=== PATIENT | female | born 1995 | race African-American/Black ===

== ENCOUNTER 2016-12-06 05:47 | Emergency (ER) | payer OTHER ==
--- NOTE | 2016-12-06 08:30 | EDDOCDS ---
Physician Documentation [facility] Name: Bahrat Sloan Age: 21 yrs Sex: Female : 1995 Arrival Date: 12/06/2016 Time: 05:47 Bed I4 / M4 Private MD: Disposition: 12/06/16 08:14 Discharged to Home/Self Care. Impression: Acute upper respiratory infections of multiple and unspecified sites, Nasal congestion. - Condition is Stable. - Discharge Instructions: Upper Respiratory Infection, Adult. - Prescriptions for dextromethorphan- guaifenesin 30-200 mg/5 mL Oral liquid - take 5 milliliter by ORAL route every 6 hours As needed as needed; 150 milliliter. Saline Nasal 0.65 % - spray 1 spray by INTRANASAL route as directed 1 spray in each nostril before all feeding and sleep times; 1 bottle. - Medication Reconciliation form. - Follow up: [facility] [place]; When: Call to arrange an appointment; Reason: Wound/Symptom Recheck, Recheck today's complaints, Continuance of care. - Problem is new. - Symptoms are unchanged. Historical: - Allergies: No known drug Allergies; - Home Meds: 1. Vitamin Oral tab - PMHx: Anxiety; Depression; - PSHx: left knee surgery; - Social history: Smoking status: Patient states was never smoker of tobacco. No barriers to communication noted, The patient speaks fluent Greenlandic, Speaks appropriately for age. - Family history: Not pertinent. - : The pt / caregiver states he / she is not on anticoagulants. Home medication list is obtained from the patient. - Exposure Risk Screening:: None identified. 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 (160.02 cm); Pain 1/10; 08:20 BP 96 / 59; Pulse 89; Resp 18; Temp 97.8; Pulse Ox 98% ; Pain 0/10; jam1 05:57 Body Mass Index 30.11 (77.11 kg, 160.02 cm) ko2 MDM: 06:07 [facility] Payment Agreement was scanned into [employer] and attached to record. hs2 07:47 Heart Tones ordered. cc10 07:59 Strep Screen, Nursing ordered. cc10 08:14 GATS (NEGATIVE STREP SCREEN) Ordered. EDMS 08:23 Financial registration complete. jp5 Signatures: Dispatcher [employer] EDMS Brittany Carroll, RN RN Sanjeev Mills, KELLY PAObi cc10 Kathrine Villela,RN RN Jean Rapp jp5 Ema Burden, Reg Reg hs2 The chart was reviewed and I authenticate all verbal orders and agree with the evaluation and treatment provided.Attachments: 06:07 [facility] Payment Agreement hs2 MTDD
--- NOTE | 2016-12-06 08:30 | EDDOCDS ---
Nurse's Notes [facility] Name: Bharat Sloan Age: 21 yrs Sex: Female : 1995 Arrival Date: 12/06/2016 Time: 05:47 Bed I4 / M4 Private MD: Diagnosis: Acute upper respiratory infections of multiple and unspecified sites;Nasal congestion Presentation: 12/06 05:54 Presenting complaint: Patient states: cold since yesterday. Pt states throat is itchy ko2 and woke up with a headache. Pt states she is 21 weeks and was told by the guys on drum she needed to come and be seen. Suicide/Homicide risk assessment- the patient denies having any suicidal and/or homicidal ideations and does not present with any other emotional, behavioral or mental health complaints. 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 Transition of care: patient was not received from another setting of care. 05:54 Method Of Arrival: Walkin/Carried/Asstd ko2 06:00 Adult Sepsis Screening: The patient does not have new or worsening altered mentation. ko2 Patient's respiratory rate is less than 22. Systolic blood pressure is greater than 100. Patient has a qSOFA score of 0- Negative Sepsis Screen. 06:00 Acuity: JOE Level 4 ko2 Triage Assessment: 05:56 General: Appears in no apparent distress. Pain: Denies pain. Pt Declines HIV testing. ko2 Neurological: Level of Consciousness is awake, alert. Respiratory: Airway is patent Respiratory effort is even, Respiratory pattern is regular. Derm: Skin is normal. 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 Vitamin Oral tab - PMHx: Anxiety; Depression; - PSHx: left knee surgery; - Social history: Smoking status: Patient states was never smoker of tobacco. No barriers to communication noted, The patient speaks fluent Nepali, Speaks appropriately for age. - Family history: Not pertinent. - : The pt / caregiver states he / she is not on anticoagulants. Home medication list is obtained from the patient. - Exposure Risk Screening:: None identified. Screenin:53 Screening information is obtained from the patient. Primary language is Nepali. Fall jam1 risk: No risks identified. Assistance ADL's: requires no assistance with activities of daily living. Abuse/DV Screen: The patient / caregiver reports he/she is: not in a situation that causes fear, pain or injury. Nutritional screening: No deficits noted. Exposure Risk Screening: None identified. Advance Directives: Currently, there is no health care proxy. There is no active DNR order. There is no living will. There is no Power of Automation Test Developer. Advance directive information has not previously been placed in an [facility] medical record. Further advance directive information is declined. home support is adequate. Assessment: 07:50 General: Appears in no apparent distress, comfortable, well nourished, well groomed, kpj Behavior is appropriate for age, pleasant. Pain: Location: throat Pain currently is 5 out of 10 on a pain scale. Neurological: Level of Consciousness is awake, alert, Oriented to person, place, time. EENT: Throat is reddened bilaterally Cervical nodes enlarged on left Reports nasal congestion pain when swallowing Pain is 5 out of 10 on a pain scale. Respiratory: Airway is patent Respiratory effort is even, unlabored, Respiratory pattern is regular, symmetrical, Breath sounds are clear bilaterally. GI: Abdomen is gravid Bowel sounds present X 4 quads. Abd is soft and non tender X 4 quads. : Denies cramping vaginal bleeding. Derm: Skin is pink, warm & dry. 08:23 Reassessment: Patient appears in no apparent distress at this time. Patient states kpj feeling better. Pain: Location: throat Pain currently is 5 out of 10 on a pain scale. EENT: Throat is reddened bilaterally no drooling, accommodates own secretions.. Respiratory: Airway is patent Respiratory effort is even, unlabored, Respiratory pattern is regular, symmetrical. Derm: Skin is pink, warm & dry. Vital Signs: 05:57 BP 118 / 62; Pulse 86; Resp 18; Temp 97.9(TE); Pulse Ox 97% on R/A; Weight 77.11 kg; ko2 Height 63 in. (160.02 cm); Pain 1/10; 08:20 BP 96 / 59; Pulse 89; Resp 18; Temp 97.8; Pulse Ox 98% ; Pain 0/10; jam1 05:57 Body Mass Index 30.11 (77.11 kg, 160.02 cm) ko2 Vitals: 05:57 Log In Time: December 06, 2016 at 05:47. ko2 07:54 Heart Tones 138BPM. [facility] ED Course: 05:48 Patient visited by Henrry Bowen Reg. pm4 05:48 Patient moved to Waiting pm4 05:53 Patient moved to Triage 1 ko2 06:00 Triage Initiated ko2 06:00 Patient moved to Waiting ko2 06:07 [facility] Payment Agreement was scanned into [employer] and attached to record. hs2 06:47 Patient moved to I4 / M4 jam1 06:53 Pt greeted and oriented to ED. Patient advised of names of staff involved in care, jam1 location of call church, wait times and NPO status. Patient has correct armband on for positive identification. Bed in low position. Call light in reach. Side rails up X 1. Adult w/ patient. Door closed. 07:44 Sanjeev Vickers PA-C is PHCP. cc10 07:44 Henri Solares MD is Attending Physician. cc10 07:50 Resting quietly. kpj 07:50 The patient / caregiver is instructed regarding the plan of care and ED course. kpj 07:50 No IV's were initiated during this patient's visit. No procedures done that require [facility] assistance. 07:58 Patient visited by Sanjeev Vickers PA-C. cc10 07:58 Patient visited by Sanjeev Vickers PA-C. cc10 08:14 [facility] cc10 08:17 GATS (NEGATIVE STREP SCREEN) Sent. [facility] Order Results: There are currently no results for this order. Outcome: 08:14 Discharge ordered by Provider. cc10 08:23 Discharge Assessment: Patient awake, alert and oriented x 3. No cognitive and/or kpj functional deficits noted. Patient verbalized understanding of disposition instructions. patient administered narcotics - no. The following High Risk Discharge criteria are identified: None. Discharged to home ambulatory, with significant other. Condition: good. Discharge instructions given to patient, Instructed on discharge instructions, follow up and referral plans. medication usage, Demonstrated understanding of instructions, medications, Pt was receptive of discharge instructions/ teaching. Prescriptions given X 2. No special radiology studies were completed. Property sent home with patient. 08:29 Patient left the ED. [facility] Signatures: Brittany Carroll RN RN j Huong Romero, HEALTH INFORMATION ASSISTANT HEALTH INFORMATION ASSISTANT jam1 Sanjeev Vickers, PA-C PA-C cc10 Kathrine Villela,RN RN ko2 Ema Burden, Reg Reg hs2 Henrry Bowen, Reg Reg pm4 MTDD
--- NOTE | 2016-12-08 09:30 | EDDOCDS ---
Physician Documentation [facility] Name: Bharat Sloan Age: 21 yrs Sex: Female : 1995 Arrival Date: 12/06/2016 Time: 05:47 Bed I4 / M4 Private MD: Disposition: 12/06/16 08:14 Discharged to Home/Self Care. Impression: Acute upper respiratory infections of multiple and unspecified sites, Nasal congestion. - Condition is Stable. - Discharge Instructions: Upper Respiratory Infection, Adult. - Prescriptions for dextromethorphan- guaifenesin 30-200 mg/5 mL Oral liquid - take 5 milliliter by ORAL route every 6 hours As needed as needed; 150 milliliter. Saline Nasal 0.65 % - spray 1 spray by INTRANASAL route as directed 1 spray in each nostril before all feeding and sleep times; 1 bottle. - Medication Reconciliation form. - Follow up: [facility] [place]; When: Call to arrange an appointment; Reason: Wound/Symptom Recheck, Recheck today's complaints, Continuance of care. - Problem is new. - Symptoms are unchanged. Historical: - Allergies: No known drug Allergies; - Home Meds: 1. Vitamin Oral tab - PMHx: Anxiety; Depression; - PSHx: left knee surgery; - Social history: Smoking status: Patient states was never smoker of tobacco. No barriers to communication noted, The patient speaks fluent Greek, Speaks appropriately for age. - Family history: Not pertinent. - : The pt / caregiver states he / she is not on anticoagulants. Home medication list is obtained from the patient. - Exposure Risk Screening:: None identified. 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 (160.02 cm); Pain 1/10; 08:20 BP 96 / 59; Pulse 89; Resp 18; Temp 97.8; Pulse Ox 98% ; Pain 0/10; jam1 05:57 Body Mass Index 30.11 (77.11 kg, 160.02 cm) ko2 MDM: 06:07 [facility] Payment Agreement was scanned into [employer] and attached to record. hs2 07:47 Heart Tones ordered. cc10 07:59 Strep Screen, Nursing ordered. cc10 08:14 GATS (NEGATIVE STREP SCREEN) Ordered. EDMS 08:23 Financial registration complete. jp5 12/07 11:02 T-Sheet-- Draft Copy was scanned into [employer] and attached to record. gb Signatures: Dispatcher [employer] EDMS Brittany Carroll, RN RN Gaby Tripathi, Reg Reg gb Sanjeev Vickers, PA-C PA-C cc10 Kathrine Villela,RN RN Jean Rapp jp5 Ema Burden, Reg Reg hs2 The chart was reviewed and I authenticate all verbal orders and agree with the evaluation and treatment provided.Attachments: 12/06 06:07 [facility] Payment Agreement hs2 12/07 11:02 T-Sheet-- Draft Copy gb Chart Complete MTDD
--- NOTE | 2016-12-08 09:30 | EDDOCDS ---
Nurse's Notes [facility] Name: Bharat Sloan Age: 21 yrs Sex: Female : 1995 Arrival Date: 12/06/2016 Time: 05:47 Bed I4 / M4 Private MD: Diagnosis: Acute upper respiratory infections of multiple and unspecified sites;Nasal congestion Presentation: 12/06 05:54 Presenting complaint: Patient states: cold since yesterday. Pt states throat is itchy ko2 and woke up with a headache. Pt states she is 21 weeks and was told by the guys on drum she needed to come and be seen. Suicide/Homicide risk assessment- the patient denies having any suicidal and/or homicidal ideations and does not present with any other emotional, behavioral or mental health complaints. 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 Transition of care: patient was not received from another setting of care. 05:54 Method Of Arrival: Walkin/Carried/Asstd ko2 06:00 Adult Sepsis Screening: The patient does not have new or worsening altered mentation. ko2 Patient's respiratory rate is less than 22. Systolic blood pressure is greater than 100. Patient has a qSOFA score of 0- Negative Sepsis Screen. 06:00 Acuity: JOE Level 4 ko2 Triage Assessment: 05:56 General: Appears in no apparent distress. Pain: Denies pain. Pt Declines HIV testing. ko2 Neurological: Level of Consciousness is awake, alert. Respiratory: Airway is patent Respiratory effort is even, Respiratory pattern is regular. Derm: Skin is normal. 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 Vitamin Oral tab - PMHx: Anxiety; Depression; - PSHx: left knee surgery; - Social history: Smoking status: Patient states was never smoker of tobacco. No barriers to communication noted, The patient speaks fluent German, Speaks appropriately for age. - Family history: Not pertinent. - : The pt / caregiver states he / she is not on anticoagulants. Home medication list is obtained from the patient. - Exposure Risk Screening:: None identified. Screenin:53 Screening information is obtained from the patient. Primary language is German. Fall jam1 risk: No risks identified. Assistance ADL's: requires no assistance with activities of daily living. Abuse/DV Screen: The patient / caregiver reports he/she is: not in a situation that causes fear, pain or injury. Nutritional screening: No deficits noted. Exposure Risk Screening: None identified. Advance Directives: Currently, there is no health care proxy. There is no active DNR order. There is no living will. There is no Power of Flight Surgeon. Advance directive information has not previously been placed in an [facility] medical record. Further advance directive information is declined. home support is adequate. Assessment: 07:50 General: Appears in no apparent distress, comfortable, well nourished, well groomed, kpj Behavior is appropriate for age, pleasant. Pain: Location: throat Pain currently is 5 out of 10 on a pain scale. Neurological: Level of Consciousness is awake, alert, Oriented to person, place, time. EENT: Throat is reddened bilaterally Cervical nodes enlarged on left Reports nasal congestion pain when swallowing Pain is 5 out of 10 on a pain scale. Respiratory: Airway is patent Respiratory effort is even, unlabored, Respiratory pattern is regular, symmetrical, Breath sounds are clear bilaterally. GI: Abdomen is gravid Bowel sounds present X 4 quads. Abd is soft and non tender X 4 quads. : Denies cramping vaginal bleeding. Derm: Skin is pink, warm & dry. 08:23 Reassessment: Patient appears in no apparent distress at this time. Patient states kpj feeling better. Pain: Location: throat Pain currently is 5 out of 10 on a pain scale. EENT: Throat is reddened bilaterally no drooling, accommodates own secretions.. Respiratory: Airway is patent Respiratory effort is even, unlabored, Respiratory pattern is regular, symmetrical. Derm: Skin is pink, warm & dry. Vital Signs: 05:57 BP 118 / 62; Pulse 86; Resp 18; Temp 97.9(TE); Pulse Ox 97% on R/A; Weight 77.11 kg; ko2 Height 63 in. (160.02 cm); Pain 1/10; 08:20 BP 96 / 59; Pulse 89; Resp 18; Temp 97.8; Pulse Ox 98% ; Pain 0/10; jam1 05:57 Body Mass Index 30.11 (77.11 kg, 160.02 cm) ko2 Vitals: 05:57 Log In Time: December 06, 2016 at 05:47. ko2 07:54 Heart Tones 138BPM. [facility] ED Course: 05:48 Patient visited by Henrry Bowen Reg. pm4 05:48 Patient moved to Waiting pm4 05:53 Patient moved to Triage 1 ko2 06:00 Triage Initiated ko2 06:00 Patient moved to Waiting ko2 06:07 [facility] Payment Agreement was scanned into [employer] and attached to record. hs2 06:47 Patient moved to I4 / M4 jam1 06:53 Pt greeted and oriented to ED. Patient advised of names of staff involved in care, jam1 location of call church, wait times and NPO status. Patient has correct armband on for positive identification. Bed in low position. Call light in reach. Side rails up X 1. Adult w/ patient. Door closed. 07:44 Sanjeev Vickers PA-C is PHCP. cc10 07:44 Henri Solares MD is Attending Physician. cc10 07:50 Resting quietly. kpj 07:50 The patient / caregiver is instructed regarding the plan of care and ED course. kpj 07:50 No IV's were initiated during this patient's visit. No procedures done that require [facility] assistance. 07:58 Patient visited by Sanjeev Vickers PA-C. cc10 07:58 Patient visited by Sanjeev Vickers PA-C. cc10 08:14 [facility] is Referral Physician. cc10 08:17 GATS (NEGATIVE STREP SCREEN) Sent. [facility] 12/07 11:02 T-Sheet-- Draft Copy was scanned into [employer] and attached to record. gb Order Results: Lab Order: GATS (NEGATIVE STREP SCREEN); SPEC'M 12/06/16 08:10 Test: GATS CULTURE (NEG STREP SCR); Value: GATS RESULT NEGATIVE FOR STREP PYOGENES (GROUP A); Status: F Test: GATS CULTURE (NEG STREP SCR); Value: <EXTERNAL COMMENT eCWMed> FULL REPORT IN LAB NOTES (eCW and Medent).; Status: F Outcome: 12/06 08:14 Discharge ordered by Provider. cc10 08:23 Discharge Assessment: Patient awake, alert and oriented x 3. No cognitive and/or [facility] functional deficits noted. Patient verbalized understanding of disposition instructions. patient administered narcotics - no. The following High Risk Discharge criteria are identified: None. Discharged to home ambulatory, with significant other. Condition: good. Discharge instructions given to patient, Instructed on discharge instructions, follow up and referral plans. medication usage, Demonstrated understanding of instructions, medications, Pt was receptive of discharge instructions/ teaching. Prescriptions given X 2. No special radiology studies were completed. Property sent home with patient. 08:29 Patient left the ED. [facility] Signatures: Brittany Carroll, RN RN Huong Mack, COGNOS ADMINISTRATOR COGNOS ADMINISTRATOR jam1 Gaby Diaz, Reg Reg gb Sanjeev Vickers, PA-C PA-C cc10 Kathrine Villela,RN RN ko2 Ema Burden, Reg Reg hs2 Henrry Bowen, Reg Reg pm4 Chart Complete MTDD
--- NOTE | 2016-12-08 09:30 | EDDOCDS ---
Physician Documentation [facility] Name: Bharat Sloan Age: 21 yrs Sex: Female : 1995 Arrival Date: 12/06/2016 Time: 05:47 Bed I4 / M4 Private MD: Disposition: 12/06/16 08:14 Discharged to Home/Self Care. Impression: Acute upper respiratory infections of multiple and unspecified sites, Nasal congestion. - Condition is Stable. - Discharge Instructions: Upper Respiratory Infection, Adult. - Prescriptions for dextromethorphan- guaifenesin 30-200 mg/5 mL Oral liquid - take 5 milliliter by ORAL route every 6 hours As needed as needed; 150 milliliter. Saline Nasal 0.65 % - spray 1 spray by INTRANASAL route as directed 1 spray in each nostril before all feeding and sleep times; 1 bottle. - Medication Reconciliation form. - Follow up: [facility] [place]; When: Call to arrange an appointment; Reason: Wound/Symptom Recheck, Recheck today's complaints, Continuance of care. - Problem is new. - Symptoms are unchanged. Historical: - Allergies: No known drug Allergies; - Home Meds: 1. Vitamin Oral tab - PMHx: Anxiety; Depression; - PSHx: left knee surgery; - Social history: Smoking status: Patient states was never smoker of tobacco. No barriers to communication noted, The patient speaks fluent Icelandic, Speaks appropriately for age. - Family history: Not pertinent. - : The pt / caregiver states he / she is not on anticoagulants. Home medication list is obtained from the patient. - Exposure Risk Screening:: None identified. 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 (160.02 cm); Pain 1/10; 08:20 BP 96 / 59; Pulse 89; Resp 18; Temp 97.8; Pulse Ox 98% ; Pain 0/10; jam1 05:57 Body Mass Index 30.11 (77.11 kg, 160.02 cm) ko2 MDM: 06:07 [facility] Payment Agreement was scanned into [employer] and attached to record. hs2 07:47 Heart Tones ordered. cc10 07:59 Strep Screen, Nursing ordered. cc10 08:14 GATS (NEGATIVE STREP SCREEN) Ordered. EDMS 08:23 Financial registration complete. jp5 12/07 11:02 T-Sheet-- Draft Copy was scanned into [employer] and attached to record. gb Signatures: Dispatcher [employer] EDMS Brittany Carroll, RN RN Gaby Tripathi, Reg Reg gb Sanjeev Vickers, PA-C PA-C cc10 Kathrine Villela,RN RN Jean Rapp jp5 Ema Burden, Reg Reg hs2 The chart was reviewed and I authenticate all verbal orders and agree with the evaluation and treatment provided.Attachments: 12/06 06:07 [facility] Payment Agreement hs2 12/07 11:02 T-Sheet-- Draft Copy gb Chart Complete MTDD
== END 2016-12-06 08:29 | disposition home or self-care (01) ==
LOC: M ED 05:47
DX: O99.512 Diseases of the respiratory system complicating pregnancy, second trimester (principal); J06.9 Acute upper respiratory infection, unspecified; Z3A.21 21 weeks gestation of pregnancy; O99.342 Other mental disorders complicating pregnancy, second trimester; F32.9 Major depressive disorder, single episode, unspecified; F41.9 Anxiety disorder, unspecified

== ENCOUNTER 2017-04-11 19:13 | Outpatient (CLI) | payer OTHER | END 2017-04-11 21:10 | disposition home or self-care (01) | LOC: M LDO 19:13 | PROVIDERS: ATTEND Obstetrics & Gynecology | DX: O26.893 Other specified pregnancy related conditions, third trimester (principal); Z3A.39 39 weeks gestation of pregnancy ==

== ENCOUNTER 2017-04-14 02:22 | Outpatient (CLI) | payer OTHER ==
[~2017-04-14] VITALS: Ht 160 cm; Wt 85.0 kg
[2017-04-14 02:31] VITALS: BP 105/61
[2017-04-14] MEDS ORDERED: PRENTAB55 PO (02:41)
[2017-04-14 04:18] VITALS: BP 107/63
[2017-04-14 06:50] VITALS: BP 105/55
--- NOTE | 2017-04-14 15:59 | HPE ---
DATE OF ADMISSION: 04/14/2017 HISTORY OF PRESENT ILLNESS: A 21-year-old 1, para 0, last menstrual period (LMP) 07/12/2016, estimated date of confinement (EDC) 04/18/2017, at 39 and 3 weeks of gestation, came in with [place] Crain contractions that are 2-6 minutes apart, moderate, not regular. On admission she was 1 cm posterior thick -3. No vaginal loss or bleeding. LABORATORY DATA: Labs show O positive, HIV negative, hepatitis negative, RPR negative, rubella immune. Varicella immune. Pap normal. Urine negative. Gonorrhea and chlamydia negative. 1-hour glucose was 65. 28-week glucose was 89. GBS positive. Quad screen was negative. CF was negative. 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 She is on Valtrex on an as needed basis. PHYSICAL EXAMINATION: She appears distressed and she is having her contractions, but otherwise she is essentially normal. She has been here four hours. In reevaluation category one strip, 1 cm posterior high -3. No vaginal bleeding or loss. Her urine is 10/10, pH seven negative. Blood pressure 105/55, respirations 18, pulse 68, temperature 97.5. She is otherwise normocephalic, atraumatic. Neck full range of motion. Pupils equal and reactive to light. Distal pulses are symmetric. No evidence of deep venous thrombosis (DVT), pulmonary embolism (PE) or superficial phlebitis. Lungs are clear bilaterally to bases. No wheezes or rhonchi. Abdomen is soft. Four quadrant bowel sounds. Appropriate symphysis fundus height. No rashes, lesions or pruritus. No arthralgia, myalgia. No complaints of cough, wheezes, shortness of breath or dyspnea on exertion. No chest pain, not bleeding. Neuro complete. No incontinence, urgency or frequency. No nausea, vomiting, diarrhea or constipation. She has no diabetic issues. Family history and surgical history are noncontributory. She does not smoke or drink, or abuse drugs. No domestic violence. 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 ASSESSMENT: In summary we have a primigravida at 39 and three with [place] Crain contractions, possibly early labor. She is discharged undelivered with precautions. Has a followup on Monday, but feel free to come back in any time should she have ruptured membranes, bleeding, contractions 5-7 which are moderate intensity, or if she requires reevaluation based on her perception of labor. The patient was discharged undelivered.
[2017-04-14] MEDS ORDERED: ZANTTAB PO (16:51)
== END 2017-04-14 08:15 | disposition home or self-care (01) ==
LOC: M LDO 02:22
PROVIDERS: ATTEND Obstetrics & Gynecology
DX: O62.0 Primary inadequate contractions (principal); O98.513 Other viral diseases complicating pregnancy, third trimester; O99.820 Streptococcus B carrier state complicating pregnancy; B00.9 Herpesviral infection, unspecified; Z79.899 Other long term (current) drug therapy; R63.4 Abnormal weight loss; Z3A.39 39 weeks gestation of pregnancy

== ENCOUNTER 2017-04-14 16:29 | Inpatient (IN) | payer OTHER ==
[~2017-04-14] VITALS: Ht 160 cm; Wt 85.0 kg
[2017-04-14] VITALS (29 sets, daily range): BP systolic 90–137; BP diastolic 52–102
[~2017-04-14 16:29] MED LIST: PRENTAB55 PO
[2017-04-14] MEDS ORDERED: ZANTTAB PO (16:51)
[2017-04-14] MEDS ORDERED: LR 1,000 ML IV SCH (17:05)
[2017-04-14] MEDS ORDERED: PENICILLIN G POTASSIUM IV 5 MU in D5W MINI-BAG PLUS 100 ML IV STA (17:05)
[2017-04-14] MEDS ORDERED: LACTATED RINGER'S 1000 ML IV ONE (17:15)
[2017-04-14 17:17] LABS: MEAN CORPUSCULAR HEMOGLOBIN 26.4 pg (27.0-33.0); MEAN CORPUSCULAR HGB CONC 33.8 g/dl (32.0-36.5); MEAN CORPUSCULAR VOLUME 78.1 fl (80.0-96.0); RED CELL DISTRIBUTION WIDTH 13.7 % (11.5-14.5); WHITE BLOOD COUNT 15.8 K/mm3 (4.0-10.0)
[2017-04-14] MEDS ORDERED: FENTANYL 2MCG/ML ROPIVACAINE 0.2% IN 0.9% NACL 200ML IVBAG As Ordered ONE (17:42)
[2017-04-14] MEDS ORDERED: ONDANSETRON 4MG/2ML VIAL (J2405) IV PRN (19:15)
[2017-04-14] MEDS ORDERED: ePHEDrine SULFATE 25 MG/5 ML(5MG/ML) SYRINGE IV PRN (19:15)
[2017-04-14] MEDS ORDERED: diphenhydrAMINE INJ 50MG/ML VIAL (J1200) IV PRN (19:15)
[2017-04-14] MEDS ORDERED: EPIDURAL/PCA KEYS XX PRN (19:15)
[2017-04-14] MEDS ORDERED: REFRIGERATOR IV KEYS XX PRN (19:15)
[2017-04-14] MEDS ORDERED: NALOXONE INJ 0.4 MG/1 ML VIAL (J2310) IV PRN (19:15)
[2017-04-14] MEDS ORDERED: LACTATED RINGER'S 1000 ML IV PRN (19:15)
[2017-04-14] MEDS ORDERED: FENTANYL/ROPIVACAINE/NACL BAG 200 ML EPIDURAL SCH (19:15)
[2017-04-14] MEDS ORDERED: EPIDURAL COMMENT XX SCH (19:15)
[2017-04-14] MEDS ORDERED: OXYTOCIN 30 UNITS IN 0.9% NaCl 500ML IV BAG (J2590) As Ordered ONE (20:05)
--- NOTE | 2017-04-14 20:18 | HPE ---
DATE OF ADMISSION: 04/14/2017 HISTORY: This lady is an 21-year-old 1, para 0, last menstrual period (LMP) 07/12/2016, estimated date of confinement (EDC) 04/18/2017 at 39 and 3 weeks' of gestation, with a history with active contractions every two minutes, moderate in intensity and spontaneous rupture of membranes, clear liquor, group B Streptococcus (GBS) positive. Her risk factors are GBS positive, increased weight gain and she had herpes simplex virus (HSV) positive, was taking Zovirax on intermittent basis. LABORATORIES: O+, HIV negative, hepatitis negative, RPR negative, rubella immune. Varicella immune. Pap normal. Urine was positive. Gonorrhea and chlamydia negative. One-hour glucose earlier was 65; 28-week, 1-hour glucose tolerance test (GTT) was 89. GBS positive. Quad screen was negative and cystic fibrosis (CF) was negative. On examination, distressed female. Symphysis fundus height is 38, vertex occiput transverse, 100% effaced, anterior 3 cm, clear liquor. Marked change since she was discharged three hours ago. Blood pressure is 109/75, respirations are 18, pulse is 80 and temperature is 97.5. Urine is 1000, pH seven, +1 protein, +1 ketones, +1 blood. With a sterile examination, the Nitrazine was positive, fern was positive and there was documentation of clear liquor on the pad. IN SUMMARY: I have a term gestation, group B Streptococcus (GBS) positive, in active labor. Our plan of management is hydrate, prophylaxis for GBS, epidural as requested and anticipate ongoing labor.
[2017-04-14] MEDS ORDERED: MEASLES,MUMPS,RUBELLA VACCINE INJ (MMR-II) (90707) SC SCH (20:30)
[2017-04-14] MEDS ORDERED: DIBUCAINE 1% OINTMENT 30GM TOP PRN (20:30)
[2017-04-14] MEDS ORDERED: RHOGAM 300 MCG (1500 IU) INJ (J2790) IM SCH (20:30)
[2017-04-14] MEDS ORDERED: OXYTOCIN INJ 10 UNITS/ML VIAL (J2590) IV ONE (20:30)
[2017-04-14] MEDS ORDERED: METHYLERGONOVINE MALEATE 0.2 MG TAB PO PRN (20:30)
[2017-04-14] MEDS ORDERED: ACETAMINOPHEN 500 MG TAB PO PRN (20:30)
[2017-04-14] MEDS ORDERED: ANUSOL HC CREAM 30GM TOP PRN (20:30)
[2017-04-14] MEDS ORDERED: DOCUSATE SODIUM 100 MG CAP PO PRN (20:30)
[2017-04-14] MEDS ORDERED: MOM 30ML SUSPENSION UDC PO PRN (20:30)
[2017-04-14] MEDS ORDERED: OXYTOCIN DRIP 30 UNITS in APPROPRIATE DILUENT 1 EA IV SCH (20:30)
[2017-04-14 20:48] LABS: CORD GAS ABE A -8.3; CORD GAS ABE V -7.4; CORD GAS HCO3 A 19.2 MEQ/L; CORD GAS HCO3 V 17.1 MEQ/L; CORD GAS O2 SAT A 67.7 %; CORD GAS O2 SAT V 85.2 %; CORD GAS PCO2 A 46.8 mmHg; CORD GAS PCO2 V 32.5 mmHg; CORD GAS PH A 7.231 UNITS; CORD GAS PH V 7.34 UNITS; CORD GAS PO2 A 33.1 mmHg; CORD GAS PO2 V 45.8 mmHg; CORD GAS SBC A 17.2 MEQ/L; CORD GAS SBC V 18.3 MEQ/L; CORD GAS TCO2 A 20.6 MEQ/L; CORD GAS TCO2 V 18.1 MEQ/L
[2017-04-14] MEDS ORDERED: PENICILLIN G POTASSIUM IV 2.5 MU in D5W 100 ML IV SCH (21:30)
[2017-04-15 05:35] VITALS: BP 138/67
[2017-04-15] MEDS: IBUPROFEN 800 MG TAB PO PRN ×2 (05:51→18:38)
[2017-04-15 07:57] LABS: MEAN CORPUSCULAR HEMOGLOBIN 26.8 pg (27.0-33.0); MEAN CORPUSCULAR HGB CONC 34.7 g/dl (32.0-36.5); MEAN CORPUSCULAR VOLUME 77.3 fl (80.0-96.0); RED CELL DISTRIBUTION WIDTH 13.8 % (11.5-14.5); WHITE BLOOD COUNT 16.6 K/mm3 (4.0-10.0)
[2017-04-15] MEDS: PRENATAL VITAMINS CHEWABLE TABLET PO SCH (08:18)
--- NOTE | 2017-04-15 11:04 | DN ---
DATE: 04/14/2017 This lady is a 1 now para 1 admitted in spontaneous active labor. Epidural in place. Delivered a live male infant weighing 3088 grams, 6 pounds 13 ounces of 9 and 9 at one and five minutes respectfully. Arterial and venous pH was performed. There was terminal meconium at delivery. Placenta delivered spontaneously complete. Three-vessel membranes and tissues. Examination of lateral wall, she had a right vaginal tear oversewn with a #2-0 Vicryl and [id number]. The rest of the examination is unremarkable. Sphincter was intact and mucosa was intact. Uterus contracted well down on Pitocin. The patient and baby tolerated the procedure well.
--- NOTE | 2017-04-15 14:22 | IPN ---
DATE OF SERVICE: 04/15/2017 day #1. This lady is a 21-year-old 1, now para 1, came in at 39 and 3 weeks of gestation in spontaneous labor. She delivered a live male , 6 pounds 13 ounces, 3088 grams. scores of 9 and 9 at 1 and 5 minutes, respectively. Arterial pH was 7.23, base excess -8.3, venous pH 7.34, base excess -7.4. Her admitting hemoglobin is 12.4, hematocrit 36.6, platelets are 197. day #1 hemoglobin is still pending. Today, her blood pressure is 138/67, respirations 18, pulse 75, temperature is 97.5. She had a right vaginal wall repair, inconsequential. She was group B streptococcus (GBS) positive, treated, and she has herpes simplex virus (HSV) intermittently where she takes intermittent Zovirax, but she has had no outbreaks. Today, a discussion of phlebitis, cystitis, mastitis, endometritis, cellulitis, diet, exercise, pain management, perineal, breast, and wound care. control is still up in the air and will discuss at her 6-week check. In summary, we have a term gestation, delivered a live male . Uterus 2 below. Lochia is moderate. Perineum is intact, and the patient is doing well with her breast-feeding.
[2017-04-15] MEDS ORDERED: OXYTOCIN INJ 10 UNITS/ML VIAL (J2590) IV ONE (15:00)
[2017-04-15 18:00] VITALS: BP 121/69
[2017-04-16 06:14] VITALS: BP 134/68
[2017-04-16] MEDS: PRENATAL VITAMINS CHEWABLE TABLET PO SCH (08:12)
[2017-04-16] MEDS ORDERED: NUPE1OIN2 TOP (10:46)
[2017-04-16] MEDS ORDERED: IBUP-1114 PO (10:46)
[2017-04-16] MEDS ORDERED: ACET50TA PO (10:46)
[2017-04-16] MEDS ORDERED: COLA100C3 PO (10:46)
== END 2017-04-16 11:20 | disposition home or self-care (01) | DRG 774 ==
LOC: M LDO 16:29 → M LDI 16:40 → M OBS 22:45
PROVIDERS: ADMIT Obstetrics & Gynecology; ATTEND Obstetrics & Gynecology
PROC: 10E0XZZ Delivery of Products of Conception, External Approach (ICD-10-PCS; principal; 2017-04-14)
PROC: 0HQ9XZZ Repair Perineum Skin, External Approach (ICD-10-PCS; 2017-04-14)
DX: O99.824 Streptococcus B carrier state complicating childbirth (principal); O98.52 Other viral diseases complicating childbirth; Z37.0 Single live birth; Z3A.39 39 weeks gestation of pregnancy; B00.9 Herpesviral infection, unspecified; Z79.899 Other long term (current) drug therapy; O77.0 Labor and delivery complicated by meconium in amniotic fluid; O70.0 First degree perineal laceration during delivery